=== PATIENT | male | born 1940 | race Caucasian/White ===

== ENCOUNTER 2019-01-29 12:43 | Inpatient (IN) | payer SELFPAY ==
[~2019-01-29] VITALS: Ht 162.6 cm; Wt 72.6 kg
[2019-01-29 14:03] LABS: BASOPHILS % 0.6 % (0.0-2.0); EOSINOPHILS % 1.1 % (0.0-5.0); HEMATOCRIT. 39.5 % (42.0-52.0); HEMOGLOBIN. 13.3 g/dL (14.0-18.0); LYMPHOCYTES % 9.6 % (20.0-50.0); MEAN CORPUSCULAR HEMOGLOBIN 29.3 pg (28.0-32.0); MEAN CORPUSCULAR VOLUME 87.1 fL (80.0-94.0); MEAN PLATELET VOLUME 7.8 fl (7.4-10.4); MONOCYTES % 2.5 % (2.0-8.0); NEUTROPHILS % 86.2 % (40.0-76.0); PLATELET 480 x1000/uL (130-400); RED BLOOD CELL COUNT 4.54 mill/uL (4.7-6.1); RED CELL DISTRIBUTION WIDTH 16.3 % (11.6-14.6)
[2019-01-29 14:10] LABS: CHLORIDE 101 mEq/L (98-107)
[2019-01-29] MEDS ORDERED: SODIUM CHLORIDE 0.9% 1,000 ML IV ONE (17:00)
[2019-01-29] MEDS ORDERED: ACETAMINOPHEN 325MG TABLET PO PRN (20:30)
[2019-01-29] MEDS ORDERED: ONDANSETRON HCL 4MG/2ML INJ IV PRN (20:30)
[2019-01-29] MEDS ORDERED: DOCUSATE SODIUM 100MG CAPSULE PO PRN (20:30)
[2019-01-29] MEDS ORDERED: MAGNESIUM/ALUMINUM HYDROXIDE/SIMETHICONE 30ML UDC PO PRN (20:30)
[2019-01-29] MEDS ORDERED: CLONIDINE 0.1MG TABLET PO PRN (20:30)
[2019-01-29 22:00] VITALS: BP 130/74
[2019-01-29] MEDS: DEXT 5%/0.45% NACL 1000ML 1,000 ML IV SCH (23:16)
[2019-01-30] VITALS: BP 127/78
[2019-01-30 04:00] VITALS: BP 112/60
[2019-01-30 06:17] LABS: BASOPHILS % 1.1 % (0.0-2.0); EOSINOPHILS % 2.7 % (0.0-5.0); HEMATOCRIT. 32.7 % (42.0-52.0); LYMPHOCYTES % 15.8 % (20.0-50.0); MEAN CORPUSCULAR HEMOGLOBIN 28.9 pg (28.0-32.0); MEAN CORPUSCULAR VOLUME 86.3 fL (80.0-94.0); MEAN PLATELET VOLUME 7.8 fl (7.4-10.4); MONOCYTES % 5.4 % (2.0-8.0); PLATELET 378 x1000/uL (130-400); RED BLOOD CELL COUNT 3.79 mill/uL (4.7-6.1)
[2019-01-30 06:29] LABS: CHLORIDE 105 mEq/L (98-107)
[2019-01-30 08:00] VITALS: BP 139/75
[2019-01-30] MEDS: FOLIC ACID 1MG TABLET PO SCH (09:16)
[2019-01-30] MEDS: THIAMINE HCL 100MG TABLET PO SCH (09:16)
[2019-01-30] MEDS: MULTIVITAMINS,THER W-MINERALS TABLET PO SCH (09:16)
[2019-01-30 12:00] VITALS: BP 127/73
[2019-01-30] MEDS: DEXT 5%/0.45% NACL 1000ML 1,000 ML IV SCH (12:11)
[2019-01-30] MEDS ORDERED: BACTERIOSTATIC SODIUM CHLORIDE 0.9% 30ML VIAL IJ ONE (15:26)
[2019-01-30 16:00] VITALS: BP 137/63
[2019-01-30] MEDS ORDERED: FENTANYL CITRATE/PF 50MCG/ML 2ML VIAL ONE (18:50)
[2019-01-30] MEDS ORDERED: SIMETHICONE 40 MG/0.6 ML 30ML ONE (18:50)
[2019-01-30] MEDS ORDERED: MIDAZOLAM HCL 5 MG/5 ML VIAL ONE (18:50)
[2019-01-30] MEDS ORDERED: MIDAZOLAM HCL 5 MG/5 ML VIAL IV PRN (19:07)
[2019-01-30] MEDS ORDERED: FENTANYL CITRATE/PF 50MCG/ML 2ML VIAL IV PRN (19:08)
[2019-01-30 20:00] VITALS: BP 122/70
[2019-01-31] VITALS: BP 122/66
[2019-01-31] MEDS: DEXT 5%/0.45% NACL 1000ML 1,000 ML IV SCH ×2 (00:29→14:00)
[2019-01-31 04:00] VITALS: BP 116/67
[2019-01-31 08:00] VITALS: BP 119/67
[2019-01-31 08:28] LABS: INR 1.4; PARTIAL THROMBOPLASTIN TIME 40.1 sec (23.4-31.0); PROTHROMBIN TIME 14.6 sec (9.6-11.0)
[2019-01-31] MEDS: FOLIC ACID 1MG TABLET PO SCH (08:35)
[2019-01-31] MEDS: THIAMINE HCL 100MG TABLET PO SCH (08:36)
[2019-01-31] MEDS: MULTIVITAMINS,THER W-MINERALS TABLET PO SCH (08:36)
[2019-01-31 11:56] LABS: CARCINO EMBRYONIC ANTIGEN 1.2 ng/ml
[2019-01-31 12:08] LABS: HEPATITIS B SURFACE ANTIGEN NEGATIVE
[2019-01-31 12:34] LABS: HEPATITIS A AB IGM NEGATIVE (NEGATIVE)
[2019-01-31 15:46] VITALS: BP 119/68
[2019-01-31 20:00] VITALS: BP 128/70
[2019-02-01] VITALS: BP 109/63
[2019-02-01] MEDS: DEXT 5%/0.45% NACL 1000ML 1,000 ML IV SCH ×2 (02:06→16:00)
[2019-02-01 04:00] VITALS: BP 112/69
[2019-02-01 07:26] LABS: INR 1.5; PARTIAL THROMBOPLASTIN TIME 39.4 sec (23.4-31.0); PROTHROMBIN TIME 15.5 sec (9.6-11.0)
[2019-02-01 08:00] VITALS: BP 153/87
[2019-02-01] MEDS: FOLIC ACID 1MG TABLET PO SCH (08:15)
[2019-02-01] MEDS: THIAMINE HCL 100MG TABLET PO SCH (08:15)
[2019-02-01] MEDS: MULTIVITAMINS,THER W-MINERALS TABLET PO SCH (08:15)
[2019-02-01 12:00] VITALS: BP 150/82
[2019-02-01 16:00] VITALS: BP 112/66
[2019-02-01 20:00] VITALS: BP 118/72
[2019-02-02] VITALS (19 sets, daily range): BP systolic 112–161; BP diastolic 63–85
[2019-02-02 08:06] LABS: BASOPHILS % 1.3 % (0.0-2.0); EOSINOPHILS % 3.4 % (0.0-5.0); HEMOGLOBIN. 11.4 g/dL (14.0-18.0); LYMPHOCYTES % 20.8 % (20.0-50.0); MEAN CORPUSCULAR HEMOGLOBIN 28.9 pg (28.0-32.0); MEAN PLATELET VOLUME 7.9 fl (7.4-10.4); MONOCYTES % 4.3 % (2.0-8.0); NEUTROPHILS % 70.2 % (40.0-76.0); PLATELET 363 x1000/uL (130-400); RED BLOOD CELL COUNT 3.95 mill/uL (4.7-6.1); RED CELL DISTRIBUTION WIDTH 15.9 % (11.6-14.6)
[2019-02-02 08:07] LABS: CHLORIDE 105 mEq/L (98-107)
[2019-02-02 08:13] LABS: INR 1.6; PARTIAL THROMBOPLASTIN TIME 42.5 sec (23.4-31.0); PHOSPHORUS 3.4 mg/dL (2.5-4.9); PROTHROMBIN TIME 15.8 sec (9.6-11.0)
[2019-02-02] MEDS: MULTIVITAMINS,THER W-MINERALS TABLET PO SCH ×2 (09:00→17:31)
[2019-02-02] MEDS: THIAMINE HCL 100MG TABLET PO SCH ×2 (09:00→17:31)
[2019-02-02] MEDS: FOLIC ACID 1MG TABLET PO SCH ×2 (09:00→17:31)
[2019-02-02] MEDS ORDERED: FENTANYL CITRATE/PF 50MCG/ML 2ML VIAL ONE (09:47)
[2019-02-02] MEDS ORDERED: LIDOCAINE HCL 1% 20ML VIAL (Pyxis) INJ ONE (09:58)
[2019-02-02] MEDS ORDERED: SODIUM BICARBONATE 4% (2.4MEQ) 5ML VIAL IV ONE (09:59)
[2019-02-02] MEDS ORDERED: FENTANYL CITRATE/PF 50MCG/ML 2ML VIAL IV ONE (11:15)
[2019-02-02 15:43] LABS: HEMATOCRIT 34.8 % (42.0-52.0); HEMOGLOBIN 11.4 g/dL (14.0-18.0)
== END 2019-02-02 21:40 | disposition home or self-care (01) | DRG 254 ==
LOC: ER 12:43 → 6EST 16:54 → EDBD 16:54 → SUPCPDRO 20:21 → ENRESERV 20:31
PROVIDERS: ADMIT Hospitalist; ATTEND Hospitalist
PROC: 0DB58ZX Excision of Esophagus, Via Natural or Artificial Opening Endoscopic, Diagnostic (ICD-10-PCS; 2019-01-30)
PROC: 0FB13ZX Excision of Right Lobe Liver, Percutaneous Approach, Diagnostic (ICD-10-PCS; principal; 2019-02-02)
DX: R13.10 Dysphagia, unspecified (principal); E43 Unspecified severe protein-calorie malnutrition; R62.7 Adult failure to thrive; R47.02 Dysphasia; K40.90 Unilateral inguinal hernia, without obstruction or gangrene, not specified as recurrent; D64.9 Anemia, unspecified; Z68.27 Body mass index [BMI] 27.0-27.9, adult
CPT/HCPCS: 36415; 71045; 71250; 74176; 76700; 76942; 80048; 82105; 82378; 83735; 83880; 84100; 84484; 85014; 85018; 86301; 86304; 86705; 86709; 86803; 87340; 88305; 88307; 88312; 88313; 92610; 93005; 96360; 96361; 99285; J2250; J3010; J3490